=== PATIENT | female | born 1955 | race Caucasian/White ===

== ENCOUNTER → 2017-02-24 | Outpatient (CLI) | payer BC ==
[~2017-02-24] MED LIST: BENADRYL25 M2 PO; DHEA PO; MULTIVITAMIN1 CTB PO; NORCO 325 MG-51 TAB PO; OYSCO 500500 M1 PO; PROMETRIUM100 MG PO
== END ==
LOC: MC.RAD 02-10 14:00
DX: Z12.31 Encounter for screening mammogram for malignant neoplasm of breast (principal); N64.89 Other specified disorders of breast

== ENCOUNTER 2017-10-08 22:59 | Emergency (ER) | payer BC ==
[~2017-10-08] VITALS: Ht 162.6 cm; Wt 54.5 kg
[2017-10-08 23:02] VITALS: TEMP 100.1
[2017-10-08 23:46] LABS: BASO % 0.3 % (0.0-2.0); EOS # 0.1 (0.0-0.7); EOS % 0.6 % (0-4.0); GRAN # 12.6 (1.4-6.5); GRAN % 80.1 % (42.2-75.2); LYMPH # 1.7 (1.2-3.4); LYMPH % 10.5 % (20.0-51.0); MEAN CELL VOLUME 90 fl (80.0-100.0); MEAN CORPUSCULAR HGB CONC 34 g/dl (33.0-37.0); MONO # 1.3 (0.1-0.6); MONO % 8.2 % (1.7-9.3); PLATELET COUNT 260 K/mm3 (130-400); WHITE BLOOD COUNT 15.8 K/mm3 (4.8-10.8)
[2017-10-08 23:49] LABS: HEMATOCRIT 34.2 % (37.0-47.0); HEMOGLOBIN 11.6 g/dl (12.5-16.0); MEAN CORPUSCULAR HEMOGLOBIN 31 pg (27.0-31.0)
[2017-10-08 23:54] LABS: ADJUSTED CALCIUM 9.3 mg/dL (8.4-10.2); ALBUMIN 3.8 gm/dL (3.5-5.0); BILIRUBIN,TOTAL 0.9 mg/dL (0.0-1.0); CALCIUM 9.1 mg/dL (8.4-10.2); CREATININE, serum 0.78 mg/dL (0.52-1.25); POTASSIUM 3.7 mmol/L (3.4-5.0); TOTAL PROTEIN 6.7 gm/dL (6.4-8.2)
[2017-10-08] MEDS ORDERED: UNKNOWN ABX PO (23:59)
[2017-10-09] MEDS ORDERED: FLAGYL500 MG PO ×3 (00:29→01:06)
[2017-10-09] MEDS ORDERED: CIPRO 500MG TA500 MG PO ×3 (00:29→01:06)
[2017-10-09 00:57] VITALS: BP 128/73; PULSE 82
== END 2017-10-09 01:05 | disposition home or self-care (01) ==
LOC: COL.ER 22:59
PROVIDERS: Emergency Medicine
DX: K57.92 Diverticulitis of intestine, part unspecified, without perforation or abscess without bleeding (principal); Z90.710 Acquired absence of both cervix and uterus
CPT/HCPCS: J7030; J7050; Q9967

== ENCOUNTER → 2018-06-28 | Outpatient (CLI) | payer BC ==
[~2018-06-28] MED LIST changes: +CIPRO 500MG TA500 MG PO; +FLAGYL500 MG PO; +UNKNOWN ABX PO
== END ==
LOC: MC.RAD 10:31
DX: Z12.31 Encounter for screening mammogram for malignant neoplasm of breast (principal); Z98.890 Other specified postprocedural states

== ENCOUNTER 2019-08-03 06:27 | Day surgery (SDC) | payer MEDICARE, BC ==
[2019-08-03] VITALS (9 sets, daily range): BP systolic 109–134; BP diastolic 56–85; PULSE 65–99; TEMP 98.5
[~2019-08-03] VITALS: Ht 162.7 cm; Wt 54.9 kg
[2019-08-03 07:03] LABS: HEMATOCRIT 37.8 % (37.0-47.0); HEMOGLOBIN 12.5 g/dl (12.5-16.0); MEAN CELL VOLUME 92 fl (80.0-100.0); MEAN CORPUSCULAR HEMOGLOBIN 30 pg (27.0-31.0); MEAN CORPUSCULAR HGB CONC 33 g/dl (33.0-37.0); MEAN PLATELET VOLUME 10.3 fl (7.4-10.4); PLATELET COUNT 205 K/mm3 (130-400); RED BLOOD COUNT 4.12 M/mm3 (4.10-5.30); REDCELL DISTRIBUTION WIDTH-CV 12.5 % (11.5-14.5)
[2019-08-03 07:14] LABS: CREATININE, serum 0.79 (0.52-1.25); INR 0.9 (0.8-3.0); POTASSIUM 3.8 mmol/L (3.4-5.0)
[2019-08-03] MEDS ORDERED: VITAMIND3 5000 PO (07:32)
[2019-08-03] MEDS ORDERED: ESTRACE0.1 MG/GM VG (07:32)
[2019-08-03] MEDS ORDERED: ZESTRIL 5MG5 MG PO (07:33)
[2019-08-03] MEDS ORDERED: TOPROL XL 25MG25 MG PO (07:34)
[2019-08-03] MEDS ORDERED: LIPITOR 10MG10 MG PO (07:34)
--- NOTE | 2019-08-03 08:41 | NUR ---
SEE MERGE DOCUMENTATION FOR MEDICATION ADMINISTRATION TIMES AND INTRA/POST PROCEDURE SEDATION ASSESSMENTS. PER MD, PLAN FOR RIGHT RADIAL ARTERIAL ACCESS AND RIGHT IJ VENOUS ACCESS.
--- NOTE | 2019-08-03 09:34 | NUR ---
Back from quality assurance lab technician by bed. Alert and oriented. Left IJ sheath noted with Yolis RT(R),[employer] WE[employer] ARCHITECT to discontinue. Right TRband with 14 cc air in band, good pulses and Cap refill < 3 secs. VSS. bedside
--- NOTE | 2019-08-03 09:58 | NUR ---
Pt transferred to EU 11 from label coder at this time. TR band to right radial site. Right IJ sheath remains in place, to be pulled by RT Yolis(R), ADOLESCENT COORDINATOR, in EU. Bedside report/handoff to [facility] [place]. VS monitoring in place, VS's WNL. Pt alert and oriented, conversing with staff. Right radial site without bleeding/bruising. Pt denies pain/sensation changes to right hand. No s/sx of impaired circulation at this time. Education provided regarding movement restrictions by pt. All questions answered by RN at this time.
--- NOTE | 2019-08-03 12:10 | NUR ---
14 cc air out of TRband over 15 minutes. Pressure dressing applied. INT discontinued intact. Bandaid placed over right IJ .
--- NOTE | 2019-08-03 12:20 | NUR ---
Discharge instructions given. transferred to private car by nancy
== END 2019-08-03 12:25 | disposition home or self-care (01) ==
LOC: COL.CAR 06:27
PROVIDERS: Internal Medicine Cardiovascular Disease
DX: R07.9 Chest pain, unspecified (principal); I27.20 Pulmonary hypertension, unspecified; I50.20 Unspecified systolic (congestive) heart failure; R53.83 Other fatigue; Z79.82 Long term (current) use of aspirin; E78.5 Hyperlipidemia, unspecified; J45.909 Unspecified asthma, uncomplicated; M85.80 Other specified disorders of bone density and structure, unspecified site; Z90.710 Acquired absence of both cervix and uterus; Z90.721 Acquired absence of ovaries, unilateral; Z90.722 Acquired absence of ovaries, bilateral; Z82.49 Family history of ischemic heart disease and other diseases of the circulatory system; Z80.3 Family history of malignant neoplasm of breast; Z82.5 Family history of asthma and other chronic lower respiratory diseases; Z88.0 Allergy status to penicillin; Z88.2 Allergy status to sulfonamides; Z91.012 Allergy to eggs
CPT/HCPCS: C1894; J1644; J2250; J3010; Q9967

== ENCOUNTER → 2019-08-29 | Outpatient (CLI) | payer MEDICARE, BC ==
[~2019-08-29] MED LIST changes: +ESTRACE0.1 MG/GM VG; +LIPITOR 10MG10 MG PO; +TOPROL XL 25MG25 MG PO; +VITAMIND3 5000 PO; +ZESTRIL 5MG5 MG PO
== END ==
LOC: MC.RAD 14:45
DX: Z12.31 Encounter for screening mammogram for malignant neoplasm of breast (principal); N64.89 Other specified disorders of breast

== ENCOUNTER → 2019-09-04 | Outpatient (CLI) | payer MEDICARE, BC | LOC: MC.RAD 11:09 | DX: N64.89 Other specified disorders of breast (principal) | CPT/HCPCS: G0279 ==

== ENCOUNTER → 2023-08-31 | Outpatient (CLI) | payer MEDICARE, BC | LOC: CANSCHCLI → MC.RAD 12:39 | DX: Z12.31 Encounter for screening mammogram for malignant neoplasm of breast (principal) ==